=== PATIENT | male | born 1985 ===

== ENCOUNTER 2016-12-11 23:54 | Emergency (ER) | payer SELFPAY ==
[2016-12-12 00:03] VITALS: BP 128/75; PULSE 100; RESP 16; TEMP 98; O2SAT 100
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
--- NOTE | 2016-12-12 12:29 | RAD ---
HISTORY: nasal injury COMPARISON: No prior FINDINGS: BONES: Nondisplaced fracture of the nasal bone along the bridge. JOINTS: Normal. No osteoarthritis. SOFT TISSUE: Normal. OTHER FINDINGS: None . IMPRESSION: Nondisplaced fracture of the nasal bone along the bridge.
== END 2016-12-12 01:35 | disposition home or self-care (01) ==
LOC: H.ER 23:54
DX: S09.90XA Unspecified injury of head, initial encounter (principal); S02.2XXA Fracture of nasal bones, initial encounter for closed fracture; Y04.0XXA Assault by unarmed brawl or fight, initial encounter; Y92.89 Other specified places as the place of occurrence of the external cause